=== PATIENT | male | born 1950 | race Caucasian/White ===

== ENCOUNTER 2022-03-06 07:33 | Day surgery (SDC) | payer OTHER ==
[2022-03-02 10:19] VITALS: BMI 23.3
[2022-03-06] MEDS ORDERED: PROPOFOL 20 ML ONE ×2 (09:09→10:28)
[2022-03-06] MEDS ORDERED: MIDAZOLAM HCL 2 MG/2 ML SINGLE DOSE VIAL ONE ×2 (09:09)
[2022-03-06] MEDS ORDERED: ceFAZolin SODIUM 1 GM VIAL ONE (09:16)
[2022-03-06] MEDS ORDERED: DEXAMETHASONE SOD PHOSPHATE 4 MG/1 ML VIAL ONE (09:16)
[2022-03-06] MEDS ORDERED: ONDANSETRON 4 MG/2 ML VIAL ONE (09:16)
[2022-03-06] MEDS ORDERED: GLYCOPYRROLATE 0.2 MG/1 ML VIAL ONE (09:16)
[2022-03-06] MEDS ORDERED: ERYTHROMYCIN 0.5% OPHTHALMIC OINTMENT 3.5 GM TUBE ONE (09:32)
[2022-03-06] MEDS ORDERED: TETRACAINE 0.5% OPHTH SOLN 2 ML BOTTLE ONE (09:32)
[2022-03-06] MEDS ORDERED: POVIDONE-IODINE 5% OPHTHALMIC PREP 30 ML SOLUTION ONE (09:33)
[2022-03-06] MEDS ORDERED: BUPIVACAINE HCL 50 ML ONE (09:33)
[2022-03-06] MEDS ORDERED: LACTATED RINGERS SOLUTION 1,000 ML IV SCH (11:45)
[2022-03-06] MEDS ORDERED: ONDANSETRON 4 MG/2 ML VIAL IVPUSH PRN (11:45)
[2022-03-06] MEDS ORDERED: oxyCODONE HCL 5 MG TABLET PO PRN (11:45)
[2022-03-06 12:55] VITALS: PULSE 74; TEMP 97.7
[2022-03-06 13:33] VITALS: BP 122/70
== END 2022-03-06 13:35 | disposition home or self-care (01) ==
LOC: FASU 07:33 → EDBD 09:00 → FASU 13:35
PROVIDERS: ATTEND Ophthalmology
PROC: 0KX10ZZ Transfer Facial Muscle, Open Approach (ICD-10-PCS; 2022-03-06)
PROC: 0KX10ZZ Transfer Facial Muscle, Open Approach (ICD-10-PCS; 2022-03-06)
PROC: 08BQ0ZX Excision of Right Lower Eyelid, Open Approach, Diagnostic (ICD-10-PCS; principal; 2022-03-06 10:24)
DX: C44.1022 Unspecified malignant neoplasm of skin of right lower eyelid, including canthus (principal)
CPT/HCPCS: 94760